=== PATIENT | male | born 1965 | race Caucasian/White ===

== ENCOUNTER → 2018-04-25 | Outpatient (CLI) | payer OTHER ==
--- NOTE | 2018-04-25 17:20 | Diagnostic Imaging Report ---
PROCEDURE: CT CHEST WITHOUT CONTRAST CT scan of the chest WITHOUT intravenous contrast, using standard protocol. TECHNIQUE: The chest was scanned utilizing a multidetector helical scanner from the apex to the level of the adrenal glands. No IV contrast was administered per physician's request. Coronal and sagittal multiplanar reformations were obtained. COMPARISON: Patients [facility], , CHEST SINGLE, 10/07/2008, 10:13. INDICATIONS: PULMONARY NODULE; RENAL ANUERYSM FINDINGS: Lines/tubes: None. Lungs and Airways: Linear and subpleural groundglass opacities in the lingula, likely representing scarring. No consolidation, masses, or other opacities. No pulmonary nodules are noted. Airways are clear, without endobronchial lesions. Pleura: No effusion, or pneumothorax. Heart and mediastinum: Thyroid is unremarkable. Heart size is normal. No pericardial effusion. Atherosclerotic calcification of the coronary arteries, particularly the LAD. Ectasia of the ascending aorta, which measures approximately 4.2 x 4.3 cm. Main pulmonary artery is normal in caliber Lymph nodes: No mediastina, hilar, or axillary adenopathy. Abdomen: Limited views of the upper abdomen show no abnormality within the visualized pancreas. Diffuse hepatic steatosis. Mild splenomegaly, measuring 13.9 cm in AP diameter. 2.5 x 1.7 cm nodule in the left adrenal gland (series 2 image 111), which measures less than 10 Hounsfield units on this noncontrast exam. Right adrenal gland is unremarkable. Bones and soft tissues: No aggressive lytic lesions. Multilevel degenerative disc changes in the thoracic spine. Soft tissues are unremarkable. IMPRESSION: 1. No pulmonary nodules are identified. No prior CTs are available for comparison. If any more recent cross-sectional imaging is available for review, an addendum to this report can be placed. 2. Focal scarring in the lingula. No consolidation or effusion. 3. Ectasia of the ascending aorta. 4. Mild splenomegaly. 5. Diffuse hepatic steatosis. 6. 2.5 cm benign, lipid rich left adrenal adenoma. No further diagnostic imaging is indicated. Trell Bender M.D. Dictated by: Trell Bender M.D. on 04/25/2018 at 17:24 Electronically approved by: Trell Bender M.D. on 04/25/2018 at 17:24
== END ==
LOC: CT 16:01
PROVIDERS: ATTEND Internal Medicine Interventional Cardiology
DX: R91.1 Solitary pulmonary nodule (principal); I72.2 Aneurysm of renal artery; R61 Generalized hyperhidrosis; R06.02 Shortness of breath; F17.210 Nicotine dependence, cigarettes, uncomplicated
CPT/HCPCS: 71250